=== PATIENT | female | born 1970 | race African-American/Black ===

== ENCOUNTER 2021-12-26 14:24 | Outpatient (CLI) | payer BC, SELFPAY ==
--- NOTE | 2021-12-29 14:34 | P.PCNHOL_ITS ---
Holter/Event Monitor Holter/Event Monitor Date of procedure: 12/29/21 Holter/Event Procedure: 48 Hr Holter Monitor Diagnosis: Palpitations Indications: Palpitation Image/Tracing Quality: Favorable Finding: The basic cardiac rhythm is sinus with normal IA and QT interval. QRS duration is 0.12 seconds with QRS morphology suggesting incomplete right bundle branch block. The heart rate varies from a minimum of 50 to a maximum of 162 with an average rate of 81. There were no abrupt pauses there were no examples of abnormal AV conduction the longest RR interval recorded was 1.3 seconds. Supraventricular ectopic activity consisted of occasional PACs occurring at approximately 2 complexes per hour. There were no runs of SVT own there were no examples of atrial fibrillation. Ventricular ectopic activity was rare. Only 3 PVCs were seen during the entire 48 hours of monitoring. There were no ventricular couplets or runs. The patient maintained a diary in which palpitation was noted at 5:00 p.m. on day 1. Which correlated with normal sinus rhythm. Nausea and dizziness at 8:27 a.m. on day 2 all correlated with sinus rhythm with a heart rate of 77. Conclusion: 1. Essentially unremarkable 48 hour Holter monitor demonstrating sinus rhythm with normal heart rate variability and rare ectopic activity. 2. Patient's symptoms do not seem to correlate with a cardiac arrhythmia Joshua Medellin MD [facility]
== END 2021-12-26 14:25 | disposition home or self-care (01) ==
PROVIDERS: Visit Provider Nurse Practitioner Adult Health
DX: R00.2 Palpitations (principal)
CPT/HCPCS: 93225; 93226

== ENCOUNTER 2022-09-26 17:03 | Emergency (ER) | payer OTHER, BC, SELFPAY ==
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
[2022-09-26 17:08] VITALS: BP 146/89; PULSE 111; RESP 16; TEMP 37.3; O2SAT 98
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
[2022-09-26] MEDS: ACETAMINOPHEN 500 MG TABLET 1000 MG PO (18:06)
[2022-09-26] MEDS: KETOROLAC (*BKC) 60 MG/2 ML VIAL IM (18:48)
== END 2022-09-26 18:57 | disposition home or self-care (01) ==
LOC: ANHED 18:26
PROVIDERS: Emergency Provider Physician Assistant; PCP Family Medicine
DX: S39.012A Strain of muscle, fascia and tendon of lower back, initial encounter (principal); S16.1XXA Strain of muscle, fascia and tendon at neck level, initial encounter; E07.89 Other specified disorders of thyroid; E89.0 Postprocedural hypothyroidism; V49.40XA Driver injured in collision with unspecified motor vehicles in traffic accident, initial encounter
CPT/HCPCS: 70450; 72125; 72131; 73564; 73610; 96372; 99284; A9270; J1885

== ENCOUNTER 2023-01-07 12:29 | Outpatient (CLI) | payer BC, SELFPAY ==
--- NOTE | ~2023-01-07 | US_ITS ---
EXAMINATION: US FNA w image guidance DATE: 01/07/2023 13:38 INDICATION: Left thyroid nodule. TECHNIQUE: The procedure and its benefits and risks were discussed with the patient. Risks specifically discusse d included bleeding. The patient verbalized understanding of the risks and agreed to proceed. The nec k was prepped and draped in the usual sterile manner. 1% lidocaine was used for local anesthesia. 6 passes were made with a 25G needle into the lesion under ultrasound guidance. There were no immedia te complications. FINDINGS: Grayscale ultrasound images demonstrate needles advanced into a 16 mm hypoechoic solid nodule in left thyroid lobe for biopsy. IMPRESSION: 1. Ultrasound-guided fine needle aspiration of a left thyroid nodule. Reviewed, dictated and finalized at location A.
== END 2023-01-07 12:30 | disposition home or self-care (01) ==
PROVIDERS: PCP Family Medicine; Visit Provider Internal Medicine
DX: E04.1 Nontoxic single thyroid nodule (principal); E89.0 Postprocedural hypothyroidism
CPT/HCPCS: 10005; 88173; 88305